=== PATIENT | female | born 1940 | race Caucasian/White ===

== ENCOUNTER 2016-10-20 13:32 | Emergency (ER) | payer OTHER, BC ==
[2016-10-20] MEDS ORDERED: IOPAMIDOL (ISOVUE-370) 150 ML BTL IV ONE (14:03)
--- NOTE | 2016-10-20 14:32 | EDPHY ---
H & P Stated Complaint: intermittent tingling in a few fingers over last 3 months Time Seen by Provider: 10/20/16 13:49 HPI/ROS: CHIEF COMPLAINT: Migratory intermittent bilateral finger tip paresthesias HISTORY OF PRESENT ILLNESS: The patient presents to the ED at the advice of her primary care provider's triage nurse for evaluation of 2-3 months of intermittent paresthesias in her right and left finger tips. The patient states that she typically experiences symptoms every 10 days to 2 weeks. They tend alternate between the left and right side. There is no associated weakness. She has no additional neurologic complaints. The patient reportedly has a history of a significant internal carotid artery stenosis which was diagnosed in 2010 which she has not had routine follow-up for. The patient is not on aspirin or anti-platelet therapy. The patient denies any history of fall or trauma. She denies alleviating or exacerbating symptoms. She currently is asymptomatic. REVIEW OF SYSTEMS: A comprehensive 10 point review of systems is otherwise negative aside from elements mentioned in the history of present illness. Source: Patient Exam Limitations: No limitations - Personal History Current Tetanus/Diphtheria Vaccine: Yes - Medical/Surgical History Hx Asthma: No Hx Chronic Respiratory Disease: No Hx Diabetes: No Hx Cardiac Disease: No Hx Renal Disease: No Hx Cirrhosis: No Hx Alcoholism: No Hx HIV/AIDS: No Hx Splenectomy or Spleen Trauma: No Other PMH: l carotid artery blockage/degenerative cervical changes - Social History Smoking Status: Never smoked - Physical Exam Exam: General Appearance: Alert, no distress Eyes: Pupils equal and round no pallor or injection ENT, Mouth: Mucous membranes moist Respiratory: There are no retractions, lungs are clear to auscultation Cardiovascular: Regular rate and rhythm Gastrointestinal: Abdomen is soft and nontender, no masses, bowel sounds normal Neurological: A&O, normal motor function, normal sensory exam, normal cranial nerves Skin: Warm and dry, no rashes Musculoskeletal: Neck is supple nontender Extremities: symmetrical, full range of motion Constitutional: Initial Vital Signs Temperature (C) 36.3 C 10/20/16 13:38 Heart Rate 84 10/20/16 13:38 Respiratory Rate 16 10/20/16 13:38 Blood Pressure 140/85 H 10/20/16 13:38 O2 Sat (%) 97 10/20/16 13:38 O2 Delivery Mode Room Air Allergies/Adverse Reactions: No Known Allergies Allergy (Unverified 10/20/16 13:38) Home Medications: Medication Instructions Recorded NK [No Known Home Meds] 10/20/16 Medical Decision Making ED Course/Re-evaluation: The patient is completely neurologically intact. I did confirm with the primary care provider's office the history of left internal carotid stenosis in 2010. At this point time we will follow up this chronic finding with a CT angiogram of her neck. There is no evidence of an acute stroke or acute neurologic complaints today. Noncontrast head CT scan demonstrates no evidence of an obvious intracranial mass or acute infarct/hemorrhage. 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 Study results reviewed and discussed with Dr. Jase Mullins from Radiology. At this point time the patient will be discharged to home. I did discuss this with the on-call physician for Dr. Stephany Armenta, they will see the patient in the office for further follow-up. At this point time there is no evidence of a significant vascular explanation for her bilateral upper extremity finger paresthesias. She has had no additional neurologic symptoms. At this point time I feel she can continue to work with her primary care provider for this evaluation. Differential Diagnosis: Differential diagnosis considered includes carotid artery dissection, carotid artery stenosis/thrombosis, carpal tunnel syndrome, stroke - Data Points Laboratory Results: 10/20/16 14:39 POC Hgb 15.0 gm/dL gm/dL (12.3-15.9) POC Hct 44 % % (35.5-47.5) POC Sodium 141 mEq/L mEq/L (134-144) POC Potassium 3.9 mEq/L mEq/L (3.3-5.0) POC Chloride 102 mEq/L mEq/L (96-108) POC BUN 15 mg/dL mg/dL (7-23) POC Creatinine 0.6 mg/dL mg/dL (0.6-1.2) POC Glucose 108 mg/dL H mg/dL (70-100) Point of Care Test Results: 10/20/16 14:39 POC Sodium 141 POC Potassium 3.9 POC Chloride 102 POC BUN 15 POC Creatinine 0.6 POC Glucose 108 H Departure - Departure Disposition: Home, Routine, Self-Care Clinical Impression: Paresthesias Condition: Good Instructions: Paresthesia (ED) Additional Instructions: 1. Please return to the emergency department for any new neurologic symptoms, weakness, difficulty speaking, severe headache or other concerns. 2. Please follow up with Dr. Armenta this week for a recheck. Referrals: Stephany Armenta MD [Primary Care Provider] - As per Instructions
[2016-10-20 16:12] VITALS: BP 133/79; PULSE 70; RESP 18; O2SAT 96
[2016-10-20 16:39] VITALS: TEMP 97.7
== END 2016-10-20 16:38 | disposition home or self-care (01) ==
DX: R20.2 Paresthesia of skin (principal)
CPT/HCPCS: 70450; 70496; 70498; 99285; Q9967; 82947-QW

== ENCOUNTER → 2016-12-13 | Outpatient (CLI) | payer OTHER, BC | LOC: BRMIMAGING 11:02 | PROVIDERS: ATTEND Internal Medicine | DX: M85.80 Other specified disorders of bone density and structure, unspecified site (principal); Z78.0 Asymptomatic menopausal state ==

== ENCOUNTER → 2017-08-02 | Outpatient (CLI) | payer OTHER, BC | LOC: FIMAGING 08:52 | PROVIDERS: ATTEND Internal Medicine | DX: Z12.31 Encounter for screening mammogram for malignant neoplasm of breast (principal); R91.8 Other nonspecific abnormal finding of lung field; R05 Cough; R06.00 Dyspnea, unspecified; R63.4 Abnormal weight loss | CPT/HCPCS: G0202 ==

== ENCOUNTER → 2017-08-23 | Outpatient (CLI) | payer OTHER, BC ==
[~2017-08-23] MED LIST: IOPAMIDOL (ISOVUE-300) 100 ML BTL ONE
== END ==
LOC: CIMAGING 08:57
PROVIDERS: ATTEND Internal Medicine
DX: J98.4 Other disorders of lung (principal); J47.9 Bronchiectasis, uncomplicated; R91.1 Solitary pulmonary nodule
CPT/HCPCS: 71260; Q9967

== ENCOUNTER → 2017-10-28 | Outpatient (CLI) | payer OTHER, BC | LOC: BHFA 09:30 | PROVIDERS: ATTEND Internal Medicine Cardiovascular Disease | DX: R06.02 Shortness of breath (principal); I77.9 Disorder of arteries and arterioles, unspecified | CPT/HCPCS: 78452; 93017; A9500 ==

== ENCOUNTER → 2017-11-07 | Outpatient (CLI) | payer OTHER, BC | LOC: BHFA 09:15 | PROVIDERS: ATTEND Internal Medicine Cardiovascular Disease | DX: R06.02 Shortness of breath (principal); R01.1 Cardiac murmur, unspecified; I25.10 Atherosclerotic heart disease of native coronary artery without angina pectoris ==

== ENCOUNTER 2018-01-10 07:25 | Day surgery (SDC) | payer OTHER, BC ==
[2018-01-10] MEDS ORDERED: FAMOTIDINE 20 MG TAB PO ONE (07:31)
[2018-01-10] MEDS ORDERED: ASPIRIN EC 325 MG TAB PO ONE (07:31)
[2018-01-10] MEDS ORDERED: NS 1,000 ML IV ONE (07:31)
[2018-01-10] MEDS ORDERED: DIAZEPAM 5 MG TAB PO ONE (07:31)
[2018-01-10] MEDS ORDERED: diphenhydrAMINE 25 MG CAP PO ONE (07:31)
[2018-01-10] MEDS ORDERED: MIDAZOLAM 2 MG/2 ML VIAL IVP ONE (07:32)
[2018-01-10] MEDS ORDERED: fentaNYL 100 MCG/2 ML INJ IVP ONE (07:32)
[2018-01-10] MEDS ORDERED: BENZOCAINE UNIT DOSE SPRAY HURRICAINE MM ONE (07:32)
--- NOTE | 2018-01-10 07:58 | CPEKG ---
Heart Rate: 68 RR Interval: 882 P-R Interval: 160 QRSD Interval: 90 QT Interval: 408 QTC Interval: 434 P [place]: 81 QRS [place]: 42 T Wave [place]: 23 EKG Severity - BORDERLINE ECG - EKG Impression: SINUS RHYTHM EKG Impression: BORDERLINE R WAVE PROGRESSION, ANTERIOR LEADS Electronically Signed By: Ari Varma 10-Jan-2018 10:36:19
[2018-01-10 08:16] LABS: PLATELET COUNT 149 10^3/uL (150-400)
[2018-01-10 08:24] LABS: INR 0.96 (0.83-1.16)
[2018-01-10] MEDS ORDERED: PROPOFOL 200 MG/20 ML VIAL ONE (08:50)
[2018-01-10] MEDS ORDERED: NALOXONE HCL 0.4 MG/ML INJ IVP PRN (08:54)
[2018-01-10] MEDS ORDERED: ONDANSETRON 4 MG/2 ML VIAL IVP PRN ×2 (08:54→10:55)
--- NOTE | 2018-01-10 08:56 | PDANEPAE ---
ANE History of Present Illness ARACELIS ANE Past Medical History - Cardiovascular History Hx Hypertension: Yes Hx Coronary Artery / Peripheral Vascular Disease: Yes Hx CHF / Valvular Disease: Yes - Pulmonary History Hx COPD: No Hx Asthma/Reactive Airway Disease: No Hx Oxygen in Use at Home: No Hx Sleep Apnea: No - Endocrine History Hx Diabetes: No Hypothyroid: No Hyperthyroid: No ANE Review of Systems Review of systems is: negative Review of Systems: - Exercise capacity Exercise capacity: >=4 METS ANE Patient History - Allergies Allergies/Adverse Reactions: acetaminophen [From Percocet] Allergy (Verified 11/18/17 09:37) Vomiting bupivacaine [From Marcaine] Allergy (Verified 11/18/17 09:36) Vomiting hydrocodone [From Mathews] Allergy (Verified 11/18/17 09:37) Vomiting oxycodone [From Percocet] Allergy (Verified 11/18/17 09:37) Vomiting - Home Medications Home Medications: Denosumab [Prolia] 60 mg SQ .6MONTHS 11/18/17 [Last Taken Unknown] Herbals/Supplements -Info Only 1 ea PO DAILY 11/18/17 [Last Taken Unknown] Ibuprofen [Motrin (*)] 200 mg PO BID 11/18/17 [Last Taken Unknown] Tretinoin/Emollient Base [Tretinoin 0.05% Emollient Crm] 1 marika TP Q3D 11/18/17 [ Last Taken Unknown] Zolpidem Tartrate [Ambien 5MG (*)] 0.25 tab PO HS PRN 11/18/17 [Last Taken Unknown] Atorvastatin Calcium [Lipitor 20 mg (*)] 20 mg PO DAILY 01/03/18 [Last Taken Unknown] Losartan Potassium [Cozaar 25 mg (*)] 25 mg PO DAILY 01/03/18 [Last Taken Unknown] - Smoking Hx Smoking Status: Never smoked ANE Labs/Vital Signs - Labs Result Diagrams: 01/10/18 08:05 01/10/18 08:05 - Vital Signs Height: 154.94 cm Weight: 41.957 kg ANE Physical Exam - Airway Neck exam: FROM Mallampati Score: Class 2 Mouth exam: normal dental/mouth exam - Pulmonary Pulmonary: clear to auscultation - Cardiovascular Cardiovascular: regular rate and rhythym - ASA Status ASA Status: III ANE Anesthesia Plan Anesthesia Plan: GA with mask
--- NOTE | 2018-01-10 09:03 | PDHPUP ---
History & Physical Update H&P update statement: This history and physical update is based on an assessment of the patient which was completed after admission or registration (within 24 hours), but prior to the surgery/procedure. H&P update: H&P reviewed & patient examined, no change in patient's condition since H&P completed (Reviewed my clinic note dated 12/13/2017)
[2018-01-10] MEDS ORDERED: LIDOCAINE 1% 300 MG/30 ML SDV ONE (09:16)
[2018-01-10] MEDS ORDERED: MIDAZOLAM 2 MG/2 ML VIAL ONE (09:17)
[2018-01-10] MEDS ORDERED: fentaNYL 100 MCG/2 ML INJ ONE (09:17)
[2018-01-10] MEDS ORDERED: IOPAMIDOL (ISOVUE-370) 150 ML BTL IV ONE (09:17)
--- NOTE | 2018-01-10 10:52 | PDDXCAT ---
Diagnostic Cath Note - . Date: 01/10/18 [employer] Day Worker: Srinivasa Indication: other (moderate to severe MR; PHTN; moderate risk MPI) - Procedure Access: right groin Procedure: left heart catheterization, coronary angiography - Materials Left Heart Cath size: 6F Left Heart Cath materials: standard multipack (JL4, JR4, pigtail) Right Heart Cath size: 5F Right Heart Cath materials: PWP catheter - Findings-Left Heart Catheterization LM: normal, bifurcates into LAD and LCx LAD: mid vessel bifurcates into twin system with 2 large diagonals. Mid to distal LAD shows diffuse 40% disease. Several large septal perforators. No disease in the diagonals. LCX: diminuitive without sig CAD RCA: superdominant. No sig CAD EDP: 24 - Findings-Right Heart Catheterization RA: 7 RV: 31/4 PA: 32/12. mean 21 PAOP: 10 AO: 155/78 CO: 3.79 CI: 2.79 Estimated blood loss: <50ml Closure method: Angioseal Assessment: No flow limiting CAD in this right dominant system. Normal right and left heart filling pressures; systemic HTN. Moderate MR by ARACELIS with normal LVEF Plan: Continued medical management of systemic HTN and ongoing surveillance of MR. Pulmonary consultation as outpatient for history of abnormal chest CT
[2018-01-10] MEDS ORDERED: ATROPINE SULFATE 1 MG/10 ML SYR IVP PRN (10:55)
[2018-01-10] MEDS ORDERED: NITROGLYCERIN 0.4 MG BTL SL PRN (10:55)
--- NOTE | 2018-01-11 08:53 | ECHO ---
[email or web address] [address] Main: [phone] Fax: Transesophageal Echocardiography Name: MORE CHAU MR#: [id number] Study Date: 01/10/2018 Study Time: 08:20 AM Date of : 1940 Age: 77 year(s) Height: ( ) Weight: ( ) BSA: Gender: Female Examination: ARACELIS Indication: MITRAL INSUFFICIENCY Image Quality: Adequate Contrast: Requested by: Marcela Bernabe Heart Rate: Rhythm: BP: / Procedure Staff Workforce Advisor: Claudia Chauhan [facility] Reading Physician: Marcela Bernabe MD Requesting Provider: Marcela Bernabe MD ARACELIS Exam Details Patient Consent: Risks, alternatives of procedure explained to patient, informed consent obtained. Conclusions: Normal size left ventricle. Normal global systolic LV function. The ejection fraction is visually estimated to be 60 %. Normal size right ventricle. Normal RV function. An agitated saline study was performed and was negative for intracardiac shunting. Moderate mitral valve regurgitation is present. Posterior mitral valve prolapse. Pisa radius obtained during additional TTE imaging measures .8. Mild tricuspid regurgitation is present. Measurements: Chambers Valvular Assessment AV/MV Valvular Assessment TV/PV Normal Normal Normal Name Value Range Name Value Range Name Value Range Visual EF: 60 % Additional Measurements: Valvular Assessment AV/MV Name Value MR ERO: 0.070 cm2 MR PISA radius: 4 mm Patient: MORE CHAU Study Date: 01/10/2018 Page 1 of 2 08:20 AM MR Reg. Volume: 10 ml Findings: Left Ventricle: Normal size left ventricle. No LV hypertrophy. Normal global systolic LV function. The ejection fraction is visually estimated to be 60 %. No regional wall motion abnormality. Unable to assess diastolic dysfunction. Right Ventricle: Normal size right ventricle. Normal RV function. Left Atrium: The left atrium is normal in size. An agitated saline study was performed and was negative for intracardiac shunting. Left Atrial Appendage: The left atrial appendage is unilobular. Good color flow doppler in the left atrial appendage. Normal PW-Doppler flow pattern. No thrombus in left appendage. Right Atrium: The right atrium is normal in size. Mitral Valve: No mitral stenosis is present. Moderate mitral valve regurgitation is present. Posterior mitral valve prolapse. Pisa radius obtained during additional TTE imaging measures RV=38.3 ml. Aortic Valve: The aortic valve is tri-leaflet. Trivial aortic valve regurgitation. No aortic valve stenosis is present. Tricuspid Valve: The tricuspid valve is normal in appearance and function. Mild tricuspid regurgitation is present. Pulmonic Valve: The pulmonic valve is normal in appearance and function. There is no pulmonic regurgitation seen. Aorta: The aorta is normal. Pericardium: No pericardial effusion. l1n (No Signature Object) Patient: MORE CHAU Study Date: 01/10/2018 Page 2 of 2 08:20 AM [id number]
== END 2018-01-10 15:13 | disposition home or self-care (01) ==
LOC: FCATH 07:25
PROVIDERS: ATTEND Internal Medicine Cardiovascular Disease
PROC: B2151ZZ Fluoroscopy of Left Heart using Low Osmolar Contrast (ICD-10-PCS; principal; 2018-01-10)
PROC: B2111ZZ Fluoroscopy of Multiple Coronary Arteries using Low Osmolar Contrast (ICD-10-PCS; principal; 2018-01-10)
PROC: B246ZZ4 Ultrasonography of Right and Left Heart, Transesophageal (ICD-10-PCS; principal; 2018-01-10)
PROC: 4A023N8 Measurement of Cardiac Sampling and Pressure, Bilateral, Percutaneous Approach (ICD-10-PCS; principal; 2018-01-10)
DX: I34.0 Nonrheumatic mitral (valve) insufficiency (principal); I34.1 Nonrheumatic mitral (valve) prolapse; I27.20 Pulmonary hypertension, unspecified; I25.10 Atherosclerotic heart disease of native coronary artery without angina pectoris; R94.39 Abnormal result of other cardiovascular function study; R93.8 Abnormal findings on diagnostic imaging of other specified body structures; I77.9 Disorder of arteries and arterioles, unspecified; E78.5 Hyperlipidemia, unspecified; I70.0 Atherosclerosis of aorta; I10 Essential (primary) hypertension; Z79.82 Long term (current) use of aspirin
CPT/HCPCS: C1760; J1644; J2250; J2704; J3010; Q9967

== ENCOUNTER → 2018-08-01 | Outpatient (CLI) | payer OTHER, BC | LOC: BHFA 10:45 | PROVIDERS: ATTEND Internal Medicine Cardiovascular Disease | DX: I34.0 Nonrheumatic mitral (valve) insufficiency (principal) ==

== ENCOUNTER → 2018-08-03 | Outpatient (CLI) | payer OTHER, BC | LOC: FIMAGING 13:57 | PROVIDERS: ATTEND Internal Medicine | DX: Z12.31 Encounter for screening mammogram for malignant neoplasm of breast (principal); Z85.3 Personal history of malignant neoplasm of breast ==

== ENCOUNTER 2019-01-19 10:44 | Outpatient (CLI) | payer OTHER, BC | END 2019-01-30 | LOC: FIMAGING 10:44 ==